=== PATIENT | female | born 1975 | race Asian ===

== ENCOUNTER 2018-08-10 09:44 | Outpatient (CLI) | payer BC | END 2018-08-10 09:45 | disposition home or self-care (01) | LOC: BICMAMMO 09:44 | PROVIDERS: ATTEND Obstetrics & Gynecology | DX: Z12.31 Encounter for screening mammogram for malignant neoplasm of breast (principal) | CPT/HCPCS: 77063; 77067 ==

== ENCOUNTER 2021-01-07 12:59 | Outpatient (CLI) | payer OTHER | END 2021-01-07 13:00 | disposition home or self-care (01) | LOC: BICULT 12:59 | PROVIDERS: ATTEND Internal Medicine | DX: R14.0 Abdominal distension (gaseous) (principal); Z97.5 Presence of (intrauterine) contraceptive device; K80.20 Calculus of gallbladder without cholecystitis without obstruction | CPT/HCPCS: 76856; 93975 ==

== ENCOUNTER 2021-04-23 12:06 | Outpatient (CLI) | payer OTHER | END 2021-04-23 12:07 | disposition home or self-care (01) | LOC: BICMAMMO 12:06 | PROVIDERS: ATTEND Internal Medicine | DX: Z12.31 Encounter for screening mammogram for malignant neoplasm of breast (principal) | CPT/HCPCS: 77063; 77067 ==